=== PATIENT | female | born 1955 | race Caucasian/White ===

== ENCOUNTER 2017-03-01 07:03 | Day surgery (SDC) | payer BC ==
[~2017-03-01] VITALS: Ht 154.9 cm; Wt 108.9 kg
--- NOTE | ~2017-03-01 | OP ---
Record Of Operation [facility] [address] [place]. [address] NAME: BANDAR HICKEY : 51 STATUS : [facility]#: [id number] AGE: 61 ADM/REG DATE : 03/01/17 MR#: [id number] REPORT SERV DATE: 03/01/17 DICTATED BY: CORDELL GASTELUM III DATE: 03/01/17 REPORT STATUS : Draft TRANSCRIBED BY: MODL DATE: 03/01/17 DATE OF PROCEDURE: 03/01/2017 PREOPERATIVE DIAGNOSIS: Left ureteral calculus. POSTOPERATIVE DIAGNOSIS: Left renal calculus. PROCEDURE: Cystoscopy, left retrograde pyelogram, left ureteroscopy, and basket extraction of stone with stent placement. ANESTHESIA: General. SPECIMEN: Stone. DRAIN: 6 x 24 cm double-J ureteral stent. INDICATION: Ms. Hickey is a 61-year-old, white female, who was found to have a left proximal ureteral calculus recently and had been symptomatic, although she was hurting more on the right side. There was no stone seen on the right side. Consent was obtained for the above procedure. PROCEDURE IN DETAIL: After consent was obtained and the patient was identified, she was taken to the OR and put to sleep. She was positioned in low lithotomy position and prepped and draped in usual fashion. The 22-Barbadian cystoscope was made ready and advanced into the bladder using the obturator. The bladder was then inspected. No tumors, stones, or foreign bodies. The urothelium appeared normal. A cone-tipped ureteral catheter was inserted into the left ureteral orifice. A retrograde pyelogram was obtained. There was no obvious filling defect. A Glidewire was then passed up the left ureter, and a ureteral access sheath was used to dilate the transmural ureter. Rigid ureteroscope was then advanced up the ureter. No stone was visualized. I did want to inspect the kidney, so a flexible ureteroscope was advanced over the Glidewire and into the kidney. The wire was removed. This stone was visualized, grasped with a basket and removed. No other stones were noted while removing the stone. The cystoscope was made ready and advanced back into the bladder. A Glidewire was passed up the left ureter, over which a 6 x 24 cm double-J ureteral stent was advanced. When in position, the wire was removed. The stent was noted to coil in the renal pelvis as well as the bladder. The string was left attached. The patient was awakened and taken to recovery in stable condition. PH/MODL Cordell Gastelum III, M.D. / [id number] Record Of [address] [address] NAME: BANDAR HICKEY : 51 STATUS : [facility] PAT#: [id number] AGE: 61 ADM/REG DATE : 03/01/17 MR#: [id number] REPORT SERV DATE: 03/01/17 DICTATED BY: CORDELL GASTELUM III DATE: 03/01/17 REPORT STATUS : Draft TRANSCRIBED BY: MODL DATE: 03/01/17 CC: Cordell Gastelum III, M.D.
[~2017-03-01 07:03] MED LIST: IBU-200200 MG PO; SIN25 PO
[2017-03-03 23:15] LABS: SOURCE OF STONE Left Ureter Renal (()); STONE COMPOSITION TWO DNR (())
== END 2017-03-01 13:31 | disposition home or self-care (01) ==
LOC: SDC 07:03
PROVIDERS: Urology
PROC: 0T778DZ Dilation of Left Ureter with Intraluminal Device, Via Natural or Artificial Opening Endoscopic (ICD-10-PCS; 2017-03-01)
PROC: 0TC78ZZ Extirpation of Matter from Left Ureter, Via Natural or Artificial Opening Endoscopic (ICD-10-PCS; principal; 2017-03-01 08:15)
DX: N20.0 Calculus of kidney (principal); G20 Parkinson's disease; H91.90 Unspecified hearing loss, unspecified ear; K21.9 Gastro-esophageal reflux disease without esophagitis; K63.5 Polyp of colon; E66.01 Morbid (severe) obesity due to excess calories; Z68.42 Body mass index [BMI] 45.0-49.9, adult; Z85.828 Personal history of other malignant neoplasm of skin; Z88.0 Allergy status to penicillin; Z79.899 Other long term (current) drug therapy; Z98.890 Other specified postprocedural states
CPT/HCPCS: 74420; 82365; 85014; 85018; 93005; A9270-GY; C1769; C1894; C2617; J2250; J2405; J2710; J3010; Q9967